=== PATIENT | female | born 1940 | race Caucasian/White ===

== ENCOUNTER → 2017-07-11 | Outpatient (CLI) | payer OTHER ==
[~2017-07-11] MED LIST: ALBU6.7H; ALBU6.7H INH; AMIT10TA PO; AMOX1TAB64 PO; ASPI-496 PO; ASPI-621 PO; BENA1TAB10 PO; BENA20TA61 PO; BUPR1TAB45 SL; CALC600T4 PO; CARV3.1212 PO; COENZYME Q10 PO; DOXY100T PO; FOLI-17 PO; FURO-93 PO; GABA300C10 PO; GABA800T2 PO; METO10TA2 PO; MORP30TA81 PO; NORT10CA PO; OXYC-307 PO; PANT40TA3 PO; POTA20PA PO; POTA20TA14 PO; PRED10TA PO; PRED20TA PO; PRED5TAB PO; PREG50CA PO; SERT100T PO; SERT50TA PO; TIOT18CA INH; VITAMIN C PO; VITAMIN D PO
== END | disposition home or self-care (01) ==
LOC: CFH 12:09
PROVIDERS: ATTEND Family Medicine
DX: Z12.31 Encounter for screening mammogram for malignant neoplasm of breast (principal)
CPT/HCPCS: 77067

== ENCOUNTER 2017-07-16 10:27 | Inpatient (IN) | payer OTHER ==
[~2017-07-16] VITALS: Ht 147.3 cm; Wt 46.1 kg
[~2017-07-16 10:27] MED LIST changes: -ASPI-496 PO; -BUPR1TAB45 SL; -GABA800T2 PO; -SERT100T PO
[2017-07-16] MEDS ORDERED: SODIUM CHLORIDE 0.9% 1,000 ML IV ONE (10:47)
[2017-07-16] MEDS ORDERED: SODIUM CHLORIDE FLUSH 10ML SYR IVF ONE (11:00)
[2017-07-16 11:01] LABS: BASOPHILS # (AUTO) 0.02 x10^3/uL (0-0.1); BASOPHILS % (AUTO) 0 % (0-1); EOSINOPHILS % (AUTO) 0 % (1-7); LYMPHOCYTES % (AUTO) 6 % (22-44); MD NO; MEAN CORPUSCULAR HEMOGLOBIN 29.8 pg (27.0-34.8); MEAN CORPUSCULAR HGB CONC 33.1 g/dL (32.4-35.8); MEAN CORPUSCULAR VOLUME 89.9 fL (80-100); MEAN PLATELET VOLUME 7.5 fL (7.4-10.4); MONOCYTES # (AUTO) 0.48 x10^3/uL (0.2-0.8); MONOCYTES % (AUTO) 4 % (2-9); NEUTROPHILS # (AUTO) 12.18 x10^3/uL (1.8-6.8); NEUTROPHILS % (AUTO) 90 % (42-75); PLATELET COUNT 221 x10^3/uL (130-400); RED BLOOD COUNT 4.15 x10^6/uL (3.82-5.3); RED CELL DISTRIBUTION WIDTH 14.6 % (9.6-15.2)
[2017-07-16] MEDS ORDERED: GABA800T2 PO (11:06)
[2017-07-16] MEDS ORDERED: BUPR1TAB45 SL (11:06)
[2017-07-16] MEDS ORDERED: ASPI-496 PO (11:06)
[2017-07-16] MEDS ORDERED: SERT100T PO (11:06)
[2017-07-16 11:13] LABS: ANION GAP 7 mmol/L (5-15); CHLORIDE 96 mmol/L (98-107); CREATININE 0.64 mg/dL (0.55-1.02)
[2017-07-16] MEDS ORDERED: ONDANSETRON 2MG/ML, 2ML ONE (12:53)
[2017-07-16] MEDS ORDERED: MORPHINE SULFATE 4 MG/ML, 1ML ONE (12:54)
[2017-07-16] MEDS ORDERED: MORPHINE SULFATE 4 MG/ML, 1ML IVPush ONE (13:00)
[2017-07-16] MEDS ORDERED: ONDANSETRON 2MG/ML, 2ML IVPush ONE (13:00)
[2017-07-16 13:45] VITALS: BP 160/80
[2017-07-16 14:07] VITALS: BP 160/80
[2017-07-16 14:22] VITALS: BP 157/76
[2017-07-16] MEDS ORDERED: ONDANSETRON ODT 4 MG PO PRN (16:00)
[2017-07-16] MEDS ORDERED: hydrALAzine 20 MG/ML, 1ML IVPush PRN (16:00)
[2017-07-16] MEDS ORDERED: ONDANSETRON 2MG/ML, 2ML IVPush PRN (16:00)
[2017-07-16] MEDS ORDERED: ACETAMINOPHEN 325 MG TABLET PO PRN (16:00)
[2017-07-16] MEDS ORDERED: BISACODYL 10 MG SUPP PR PRN (16:00)
[2017-07-16] MEDS: BUPRENORPHINE/NALOXONE 8-2MG SL SCH (16:00)
[2017-07-16] MEDS ORDERED: PROMETHAZINE 25 MG/ML, 1ML IM PRN (16:00)
[2017-07-16] MEDS ORDERED: POTASSIUM CHLORIDE 20 MEQ TAB.ER.PRT PO ONE (16:30)
[2017-07-16] MEDS: METOCLOPRAMIDE 10MG TABLET PO SCH ×2 (17:03→20:23)
[2017-07-16] MEDS: SODIUM CHLORIDE 0.9% 1,000 ML IV SCH (17:03)
[2017-07-16] MEDS: GABAPENTIN 400 MG CAPSULE PO SCH ×2 (17:07→20:23)
[2017-07-16] MEDS: HEPARIN 5,000 UNITS/ML, 1ML SQ SCH (17:08)
[2017-07-16 17:14] LABS: THYROID STIMULATING HORMONE 0.521 mIU/L (0.358-3.740)
[2017-07-16 17:38] LABS: HEMOGLOBIN A1C 4.7 % (4.2-6.3)
[2017-07-16 18:45] VITALS: BP 138/78
[2017-07-16] MEDS: NORTRIPTYLINE 10 MG CAPSULE PO SCH (20:23)
[2017-07-17] MEDS: BUPRENORPHINE/NALOXONE 8-2MG SL SCH ×5 (00:39→20:15)
[2017-07-17] MEDS: HEPARIN 5,000 UNITS/ML, 1ML SQ SCH ×3 (00:39→16:00)
[2017-07-17] MEDS: SODIUM CHLORIDE 0.9% 1,000 ML IV SCH (02:42)
[2017-07-17 03:01] VITALS: BP 141/82
[2017-07-17 05:24] LABS: ALBUMIN 3.2 g/dL (3.4-5.0); ANION GAP 3 mmol/L (5-15); CALCIUM 8.5 mg/dL (8.5-10.1); CHLORIDE 100 mmol/L (98-107)
[2017-07-17 05:29] LABS: ALANINE AMINOTRANSFERASE 17 U/L (12-78); ALKALINE PHOSPHATASE 41 U/L (45-117); BILIRUBIN,TOTAL 0.9 mg/dL (0.2-1.0); CHOL/HDL RATIO 2.5; CHOLESTEROL, TOTAL 180 mg/dL (140-239); CREATININE 0.46 mg/dL (0.55-1.02); HDL CHOL % 40 % (28-40); HDL CHOLESTEROL (DIRECT) 72 mg/dL (40-60); LDL CHOLESTEROL,CALCULATED 92 mg/dL (54-169); LDL/HDL RATIO 1.3 (0.5-3.0); TOTAL PROTEIN 6.7 g/dL (6.4-8.2); TRIGLYCERIDES 81 mg/dL (50-200); VLDL CHOLESTEROL 16 mg/dL (0-25)
[2017-07-17 05:35] LABS: BASOPHILS # (AUTO) 0.03 x10^3/uL (0-0.1); BASOPHILS % (AUTO) 0 % (0-1); EOSINOPHILS # (AUTO) 0.15 x10^3/uL (0-0.4); EOSINOPHILS % (AUTO) 2 % (1-7); LYMPHOCYTES # (AUTO) 1.53 x10^3/uL (1-3.4); LYMPHOCYTES % (AUTO) 18 % (22-44); MD NO; MEAN CORPUSCULAR HEMOGLOBIN 29.7 pg (27.0-34.8); MEAN CORPUSCULAR HGB CONC 32.9 g/dL (32.4-35.8); MEAN PLATELET VOLUME 7.6 fL (7.4-10.4); MONOCYTES # (AUTO) 0.98 x10^3/uL (0.2-0.8); MONOCYTES % (AUTO) 11 % (2-9); NEUTROPHILS # (AUTO) 5.96 x10^3/uL (1.8-6.8); NEUTROPHILS % (AUTO) 69 % (42-75); PLATELET COUNT 160 x10^3/uL (130-400); RED BLOOD COUNT 3.53 x10^6/uL (3.82-5.3); RED CELL DISTRIBUTION WIDTH 14.8 % (9.6-15.2)
[2017-07-17 08:01] VITALS: BP 123/71
[2017-07-17] MEDS: CALCIUM CARBONATE 500 MG TAB.CHEW PO SCH ×2 (09:00→10:09)
[2017-07-17] MEDS ORDERED: COENZYME Q10 PO SCH (09:00)
[2017-07-17] MEDS: CHOLECALCIFEROL 1,000 UNIT TABLET PO SCH ×2 (09:00→10:10)
[2017-07-17] MEDS: SERTRALINE 100MG TABLET PO SCH ×2 (09:00→10:09)
[2017-07-17] MEDS: FUROSEMIDE 20 MG TABLET PO SCH ×2 (09:00→10:09)
[2017-07-17] MEDS: POTASSIUM CHLORIDE 20 MEQ TAB.ER.PRT PO SCH ×2 (09:00→10:09)
[2017-07-17] MEDS: GABAPENTIN 400 MG CAPSULE PO SCH ×4 (09:00→22:24)
[2017-07-17] MEDS: SENNA/DOCUSATE TABLET PO SCH ×2 (09:00→10:10)
[2017-07-17] MEDS: METOCLOPRAMIDE 10MG TABLET PO SCH ×4 (09:00→22:24)
[2017-07-17] MEDS: FOLIC ACID 1 MG TABLET PO SCH ×2 (09:00→10:09)
[2017-07-17] MEDS: ASCORBIC ACID 500 MG TABLET PO SCH ×2 (09:00→10:09)
[2017-07-17] MEDS: ASPIRIN 81 MG TABLET EC PO SCH ×2 (09:00→10:10)
[2017-07-17] MEDS ORDERED: ERGOCALCIFEROL 50,000 UNIT CAPSULE PO SCH (10:00)
[2017-07-17 12:54] VITALS: BP 139/86
[2017-07-17 20:00] VITALS: BP 131/74
[2017-07-17] MEDS: NORTRIPTYLINE 10 MG CAPSULE PO SCH (22:24)
[2017-07-18] MEDS: HEPARIN 5,000 UNITS/ML, 1ML SQ SCH ×3 (00:40→17:00)
[2017-07-18 02:00] VITALS: BP 133/71
[2017-07-18 07:51] VITALS: BP 136/71
[2017-07-18] MEDS: POLYETHYLENE GLYCOL 17 GM PACKET PO PRN (08:08)
[2017-07-18] MEDS: FUROSEMIDE 20 MG TABLET PO SCH (08:09)
[2017-07-18] MEDS: ASCORBIC ACID 500 MG TABLET PO SCH (08:09)
[2017-07-18] MEDS: POTASSIUM CHLORIDE 20 MEQ TAB.ER.PRT PO SCH (08:09)
[2017-07-18] MEDS: CALCIUM CARBONATE 500 MG TAB.CHEW PO SCH (08:09)
[2017-07-18] MEDS: METOCLOPRAMIDE 10MG TABLET PO SCH ×3 (08:09→19:52)
[2017-07-18] MEDS: FOLIC ACID 1 MG TABLET PO SCH (08:09)
[2017-07-18] MEDS: SERTRALINE 100MG TABLET PO SCH (08:09)
[2017-07-18] MEDS: SENNA/DOCUSATE TABLET PO SCH (08:09)
[2017-07-18] MEDS: ASPIRIN 81 MG TABLET EC PO SCH (08:09)
[2017-07-18] MEDS: GABAPENTIN 400 MG CAPSULE PO SCH ×3 (08:09→19:52)
[2017-07-18] MEDS: CHOLECALCIFEROL 1,000 UNIT TABLET PO SCH (08:09)
[2017-07-18] MEDS: BUPRENORPHINE/NALOXONE 8-2MG SL SCH ×3 (09:00→19:52)
[2017-07-18] MEDS ORDERED: ERGOCALCIFEROL 50,000 UNIT CAPSULE PO SCH (11:00)
[2017-07-18 12:23] VITALS: BP 120/73
[2017-07-18 18:52] VITALS: BP 117/70
[2017-07-18] MEDS: NORTRIPTYLINE 10 MG CAPSULE PO SCH (19:52)
[2017-07-19] MEDS: HEPARIN 5,000 UNITS/ML, 1ML SQ SCH ×3 (00:17→16:23)
[2017-07-19 01:46] VITALS: BP 116/73
[2017-07-19 07:10] VITALS: BP 121/74
[2017-07-19] MEDS: FOLIC ACID 1 MG TABLET PO SCH (08:11)
[2017-07-19] MEDS: SENNA/DOCUSATE TABLET PO SCH (08:11)
[2017-07-19] MEDS: GABAPENTIN 400 MG CAPSULE PO SCH ×3 (08:11→21:28)
[2017-07-19] MEDS: ASPIRIN 81 MG TABLET EC PO SCH (08:11)
[2017-07-19] MEDS: CALCIUM CARBONATE 500 MG TAB.CHEW PO SCH (08:11)
[2017-07-19] MEDS: ASCORBIC ACID 500 MG TABLET PO SCH (08:11)
[2017-07-19] MEDS: POLYETHYLENE GLYCOL 17 GM PACKET PO PRN (08:11)
[2017-07-19] MEDS: BUPRENORPHINE/NALOXONE 8-2MG SL SCH ×3 (08:12→21:00)
[2017-07-19] MEDS: FUROSEMIDE 20 MG TABLET PO SCH (08:12)
[2017-07-19] MEDS: SERTRALINE 100MG TABLET PO SCH (08:19)
[2017-07-19] MEDS: METOCLOPRAMIDE 10MG TABLET PO SCH ×3 (08:19→21:00)
[2017-07-19] MEDS: POTASSIUM CHLORIDE 20 MEQ TAB.ER.PRT PO SCH (08:20)
[2017-07-19 13:33] VITALS: BP 116/74
[2017-07-19 18:53] VITALS: BP 135/97
[2017-07-19] MEDS: NORTRIPTYLINE 10 MG CAPSULE PO SCH (21:28)
[2017-07-20] MEDS: HEPARIN 5,000 UNITS/ML, 1ML SQ SCH ×2 (00:09→09:15)
[2017-07-20 02:01] VITALS: BP 123/73
[2017-07-20] MEDS: BUPRENORPHINE/NALOXONE 8-2MG SL SCH ×2 (07:37→07:38)
[2017-07-20 07:57] VITALS: BP 128/78
[2017-07-20] MEDS: SENNA/DOCUSATE TABLET PO SCH (09:00)
[2017-07-20] MEDS: METOCLOPRAMIDE 10MG TABLET PO SCH (09:00)
[2017-07-20] MEDS: ASPIRIN 81 MG TABLET EC PO SCH (09:14)
[2017-07-20] MEDS: SERTRALINE 100MG TABLET PO SCH (09:14)
[2017-07-20] MEDS: GABAPENTIN 400 MG CAPSULE PO SCH (09:14)
[2017-07-20] MEDS: POTASSIUM CHLORIDE 20 MEQ TAB.ER.PRT PO SCH (09:14)
[2017-07-20] MEDS: FOLIC ACID 1 MG TABLET PO SCH (09:15)
[2017-07-20] MEDS: ASCORBIC ACID 500 MG TABLET PO SCH (09:15)
[2017-07-20] MEDS: CALCIUM CARBONATE 500 MG TAB.CHEW PO SCH (09:15)
[2017-07-20] MEDS: FUROSEMIDE 20 MG TABLET PO SCH (09:15)
[2017-07-20] MEDS ORDERED: ERGO500017 PO (12:34)
[2017-07-20] MEDS ORDERED: SENN1TAB7 PO (12:34)
[2017-07-20] MEDS ORDERED: ENOX40SY4 SQ (12:34)
[2017-07-20] MEDS ORDERED: ACET325T14 PO (12:34)
[2017-07-20 14:30] VITALS: BP 130/79
== END 2017-07-20 16:05 | DRG 542 ==
LOC: ED 12:27 → EDIP 12:28 → ED 13:13 → 4NOR 13:27
PROVIDERS: ADMIT Hospitalist; ATTEND Hospitalist
DX: M80.061A Age-related osteoporosis with current pathological fracture, right lower leg, initial encounter for fracture (principal); J96.21 Acute and chronic respiratory failure with hypoxia; F11.20 Opioid dependence, uncomplicated; E87.6 Hypokalemia; I11.0 Hypertensive heart disease with heart failure; I25.10 Atherosclerotic heart disease of native coronary artery without angina pectoris; G89.29 Other chronic pain; F41.9 Anxiety disorder, unspecified; F32.9 Major depressive disorder, single episode, unspecified; M54.5 Low back pain; W01.0XXA Fall on same level from slipping, tripping and stumbling without subsequent striking against object, initial encounter; D64.9 Anemia, unspecified; I34.0 Nonrheumatic mitral (valve) insufficiency; J44.9 Chronic obstructive pulmonary disease, unspecified; I50.9 Heart failure, unspecified; M19.90 Unspecified osteoarthritis, unspecified site; Z87.891 Personal history of nicotine dependence; Z91.81 History of falling; Z90.710 Acquired absence of both cervix and uterus; Y93.89 Activity, other specified; Y92.59 Other trade areas as the place of occurrence of the external cause; Y99.8 Other external cause status; Z88.8 Allergy status to other drugs, medicaments and biological substances; S06.0X0A Concussion without loss of consciousness, initial encounter; M80.08XA Age-related osteoporosis with current pathological fracture, vertebra(e), initial encounter for fracture
CPT/HCPCS: 36415; 70450; 71045; 72110; 80048; 80053; 80061; 82040; 82306; 82607; 83036; 83735; 84439; 84443; 85025; 93005; 96374; 96375; J1644; J2405; J7030

== ENCOUNTER 2018-07-22 16:56 | Inpatient (IN) | payer MEDICARE, OTHER ==
[~2018-07-22] VITALS: Ht 154.9 cm; Wt 44.8 kg
[~2018-07-22 16:56] MED LIST changes: +ACET325T14 PO; +ASPI-496 PO; -ASPI-621 PO; +ASPI81TA45 PO; +BUPR1TAB45 SL; +ENOX40SY4 SQ; +ERGO500017 PO; +GABA800T5 PO; -POTA20PA PO; +POTA20PA31 PO; +SENN-177 PO; +SERT100T PO
[2018-07-22 18:16] LABS: BASOPHILS # (AUTO) 0.01 x10^3/uL (0-0.1); BASOPHILS % (AUTO) 0 % (0-1); EOSINOPHILS # (AUTO) 0.16 x10^3/uL (0-0.4); EOSINOPHILS % (AUTO) 3 % (1-7); LYMPHOCYTES # (AUTO) 1.27 x10^3/uL (1-3.4); LYMPHOCYTES % (AUTO) 20 % (22-44); MD NO; MEAN CORPUSCULAR HEMOGLOBIN 31.1 pg (27.0-34.8); MEAN CORPUSCULAR HGB CONC 31.8 g/dL (32.4-35.8); MEAN CORPUSCULAR VOLUME 97.6 fL (80-100); MEAN PLATELET VOLUME 7.5 fL (7.4-10.4); MONOCYTES # (AUTO) 0.49 x10^3/uL (0.2-0.8); MONOCYTES % (AUTO) 8 % (2-9); NEUTROPHILS # (AUTO) 4.36 x10^3/uL (1.8-6.8); NEUTROPHILS % (AUTO) 69 % (42-75); PLATELET COUNT 207 x10^3/uL (130-400); RED CELL DISTRIBUTION WIDTH 13.7 % (9.6-15.2)
[2018-07-22 18:26] LABS: ALANINE AMINOTRANSFERASE 20 U/L (12-78); ALBUMIN 3.9 g/dL (3.4-5.0); ANION GAP 3 mmol/L (5-15); CALCIUM 8.8 mg/dL (8.5-10.1); CHLORIDE 94 mmol/L (98-107); CREATININE 0.55 mg/dL (0.55-1.02)
[2018-07-22 18:28] LABS: ALKALINE PHOSPHATASE 42 U/L (45-117); BILIRUBIN,TOTAL 0.2 mg/dL (0.2-1.0); TOTAL PROTEIN 7.2 g/dL (6.4-8.2)
--- NOTE | 2018-07-22 19:02 | NUR ---
PT TO ROOM FROM LOBBY.
--- NOTE | 2018-07-22 19:12 | NUR ---
PT HERE FOR RUQ PAIN THAT SHE HAS HAD FOR A WHILE. PT SAYS IT HAS BEEN "FLARING UP" FOR 3 WEEKS APPROX. PT DENIES N/V/D. VSS CALL LIGHT IN REACH
--- NOTE | 2018-07-22 19:42 | NUR ---
PIV PLACED. VSS. PT TO CT.
[2018-07-22 19:56] LABS: TROPONIN I 0.018 ng/mL (0.000-0.045)
[2018-07-22] MEDS ORDERED: OMNIPAQUE 350 MG/ML, 100ML BOTTLE ONE (20:01)
--- NOTE | 2018-07-22 21:06 | NUR ---
PT TO BATHROOM FOR YUA. PT UNABLE TO PRODUCE SAMPLE. PT BACK IN BED. PT HAS NO NEEDS AT THIS TIME. CALL LIGHT IN REACH
[2018-07-22] MEDS ORDERED: MORPHINE SULFATE 4 MG/ML, 1ML IVPush PRN (21:30)
[2018-07-22] MEDS ORDERED: ONDANSETRON 2MG/ML, 2ML IVPush PRN ×2 (21:30→22:30)
--- NOTE | 2018-07-22 21:32 | NUR ---
PT TO BE ADMITTED. MED REC COMPLETE. SPOUSE AT BEDSIDE. VSS. PT HAS NO NEEDS AT THIS TIME. CALL LIGHT IN REACH
[2018-07-22] MEDS ORDERED: DOCUSATE 100 MG CAPSULE PO PRN (22:30)
[2018-07-22] MEDS ORDERED: hydrALAzine 20 MG/ML, 1ML IVPush PRN (22:30)
[2018-07-22] MEDS ORDERED: BUPRENORPHINE/NALOXONE 8-2MG SL SCH (22:30)
[2018-07-22] MEDS ORDERED: ALBUTEROL SULFATE 108 MCG INH PRN (22:30)
[2018-07-22] MEDS ORDERED: ONDANSETRON ODT 4 MG PO PRN (22:30)
[2018-07-22] MEDS ORDERED: POLYETHYLENE GLYCOL 17 GM PACKET PO PRN (22:30)
[2018-07-22] MEDS ORDERED: ACETAMINOPHEN 325 MG TABLET PO PRN (22:30)
[2018-07-22] MEDS ORDERED: morphine SULFATE 10 MG/ML, 1ML IVPush PRN (22:30)
[2018-07-22] MEDS ORDERED: ERGOCALCIFEROL 50,000 UNIT CAPSULE PO SCH (22:30)
[2018-07-22] MEDS ORDERED: BISACODYL 10 MG SUPP PR PRN (22:30)
[2018-07-22] MEDS: ALBUTEROL SULFATE 2.5 MG/3 ML NPPB SCH (22:30)
[2018-07-22] MEDS ORDERED: PROMETHAZINE 25 MG/ML, 1ML IM PRN (22:30)
[2018-07-22] MEDS ORDERED: OXYcodone IR 5MG TABLET PO PRN (22:30)
[2018-07-22 22:47] LABS: FREE T4 (FREE THYROXINE) 0.83 ng/dL (0.76-1.46); THYROID STIMULATING HORMONE 3.54 mIU/L (0.358-3.740)
[2018-07-22 22:56] LABS: ESTIMATED AVERAGE GLUCOSE 54 mg/dL (0-126); HEMOGLOBIN A1C < 3.5 % (4.2-6.3)
[2018-07-22] MEDS: HEPARIN 5,000 UNITS/ML, 1ML SQ SCH (22:57)
[2018-07-22] MEDS: NORTRIPTYLINE 10 MG CAPSULE PO SCH (22:57)
[2018-07-22] MEDS: GABAPENTIN 400 MG CAPSULE PO SCH (22:57)
[2018-07-22 23:00] VITALS: BP 114/59
[2018-07-23 02:20] VITALS: BP 118/62
[2018-07-23 05:42] LABS: BASOPHILS # (AUTO) 0.03 x10^3/uL (0-0.1); BASOPHILS % (AUTO) 1 % (0-1); EOSINOPHILS # (AUTO) 0.22 x10^3/uL (0-0.4); EOSINOPHILS % (AUTO) 4 % (1-7); LYMPHOCYTES # (AUTO) 1.96 x10^3/uL (1-3.4); LYMPHOCYTES % (AUTO) 39 % (22-44); MD NO; MEAN CORPUSCULAR HEMOGLOBIN 31.3 pg (27.0-34.8); MEAN CORPUSCULAR HGB CONC 32.1 g/dL (32.4-35.8); MEAN CORPUSCULAR VOLUME 97.4 fL (80-100); MEAN PLATELET VOLUME 7.9 fL (7.4-10.4); MONOCYTES # (AUTO) 0.51 x10^3/uL (0.2-0.8); MONOCYTES % (AUTO) 10 % (2-9); NEUTROPHILS # (AUTO) 2.28 x10^3/uL (1.8-6.8); NEUTROPHILS % (AUTO) 46 % (42-75); PLATELET COUNT 183 x10^3/uL (130-400); RED BLOOD COUNT 3.05 x10^6/uL (3.82-5.3); RED CELL DISTRIBUTION WIDTH 13.9 % (9.6-15.2)
[2018-07-23 05:52] LABS: CHLORIDE 96 mmol/L (98-107)
[2018-07-23 05:59] LABS: ALANINE AMINOTRANSFERASE 20 U/L (12-78); ALBUMIN 3.7 g/dL (3.4-5.0); ALKALINE PHOSPHATASE 40 U/L (45-117); ANION GAP 3 mmol/L (5-15); BILIRUBIN,TOTAL 0.4 mg/dL (0.2-1.0); CALCIUM 8.8 mg/dL (8.5-10.1); CHOL/HDL RATIO 2.4; CHOLESTEROL, TOTAL 190 mg/dL (140-239); CREATININE 0.51 mg/dL (0.55-1.02); HDL CHOL % 42 % (28-40); HDL CHOLESTEROL (DIRECT) 80 mg/dL (40-60); LDL CHOLESTEROL,CALCULATED 98 mg/dL (54-169); LDL/HDL RATIO 1.2 (0.5-3.0); TOTAL PROTEIN 6.8 g/dL (6.4-8.2); TRIGLYCERIDES 61 mg/dL (50-200); VLDL CHOLESTEROL 12 mg/dL (0-25)
[2018-07-23] MEDS: ALBUTEROL SULFATE 2.5 MG/3 ML NPPB SCH ×3 (07:38→20:22)
[2018-07-23 07:58] VITALS: BP 119/72
[2018-07-23] MEDS: ASPIRIN 81 MG TABLET EC PO SCH (08:09)
[2018-07-23] MEDS: HEPARIN 5,000 UNITS/ML, 1ML SQ SCH ×3 (08:09→21:15)
[2018-07-23] MEDS: CALCIUM CARBONATE 500 MG TAB.CHEW PO SCH (08:10)
[2018-07-23] MEDS: ASCORBIC ACID 500 MG TABLET PO SCH (08:10)
[2018-07-23] MEDS: POTASSIUM CHLORIDE 20 MEQ PACKET PO SCH (08:10)
[2018-07-23] MEDS: GABAPENTIN 400 MG CAPSULE PO SCH ×3 (08:10→21:15)
[2018-07-23] MEDS: BUPRENORPHINE HCL/NALOXONE 8-2MG FILM SL SCH ×3 (08:10→21:15)
[2018-07-23 08:35] VITALS: BP 128/71
[2018-07-23] MEDS ORDERED: COENZYME Q10 PO SCH (09:00)
[2018-07-23 13:00] VITALS: BP 106/61
[2018-07-23 13:39] VITALS: BP 106/61
[2018-07-23 14:25] LABS: MICROSCOPIC NOT IND
[2018-07-23 14:33] LABS: CULTURE INDICATED? NO
[2018-07-23 18:38] VITALS: BP 124/74
[2018-07-23] MEDS: NORTRIPTYLINE 10 MG CAPSULE PO SCH (21:15)
[2018-07-24 03:31] VITALS: BP 126/83
[2018-07-24] MEDS: HEPARIN 5,000 UNITS/ML, 1ML SQ SCH ×2 (05:55→13:50)
[2018-07-24 08:29] VITALS: BP 137/72
[2018-07-24] MEDS: BUPRENORPHINE HCL/NALOXONE 8-2MG FILM SL SCH (08:32)
[2018-07-24] MEDS: POTASSIUM CHLORIDE 20 MEQ PACKET PO SCH (08:32)
[2018-07-24] MEDS: GABAPENTIN 400 MG CAPSULE PO SCH (08:32)
[2018-07-24] MEDS: ASCORBIC ACID 500 MG TABLET PO SCH (08:32)
[2018-07-24] MEDS: CALCIUM CARBONATE 500 MG TAB.CHEW PO SCH (08:32)
[2018-07-24] MEDS: ASPIRIN 81 MG TABLET EC PO SCH (08:32)
[2018-07-24] MEDS: ALBUTEROL SULFATE 2.5 MG/3 ML NPPB SCH (08:59)
[2018-07-24 13:21] VITALS: BP 124/74
== END 2018-07-24 14:50 | disposition home health service (06) | DRG 391 ==
LOC: ED 20:49 → EDIP 21:30 → 4NOR 22:29
PROVIDERS: ADMIT Internal Medicine; ATTEND Internal Medicine
DX: K57.30 Diverticulosis of large intestine without perforation or abscess without bleeding (principal); K83.1 Obstruction of bile duct; J96.11 Chronic respiratory failure with hypoxia; E87.1 Hypo-osmolality and hyponatremia; K82.8 Other specified diseases of gallbladder; Z88.8 Allergy status to other drugs, medicaments and biological substances; D64.9 Anemia, unspecified; F41.9 Anxiety disorder, unspecified; G89.29 Other chronic pain; I10 Essential (primary) hypertension; I34.0 Nonrheumatic mitral (valve) insufficiency; J44.9 Chronic obstructive pulmonary disease, unspecified; K83.8 Other specified diseases of biliary tract; K86.89 Other specified diseases of pancreas; L98.429 Non-pressure chronic ulcer of back with unspecified severity; M81.0 Age-related osteoporosis without current pathological fracture; Z87.891 Personal history of nicotine dependence; Z90.710 Acquired absence of both cervix and uterus
CPT/HCPCS: 36415; 74177; 74181; 76700; 80053; 80061; 81003; 83036; 83690; 83735; 84100; 84439; 84443; 84484; 85025; 94640; 99285; G0378; J1644; J7613; Q9967

== ENCOUNTER 2018-08-28 08:34 | Day surgery (SDC) | payer MEDICARE ==
[~2018-08-28] VITALS: Ht 152.4 cm; Wt 41.2 kg
[2018-08-28 09:28] VITALS: BP 138/83
[2018-08-28] MEDS ORDERED: PROPOFOL 10 MG/ML, 20ML ONE ×2 (09:45→10:28)
[2018-08-28] MEDS ORDERED: FENTANYL PF 100 MCG/2ML IV PRN (10:00)
[2018-08-28] MEDS ORDERED: ALBUTEROL SULFATE 2.5 MG/3 ML NPPB PRN (10:00)
[2018-08-28] MEDS ORDERED: LACTATED RINGERS 1,000 ML IV SCH (10:02)
[2018-08-28] MEDS ORDERED: PHENYLEPHRINE 10 MG/ML ONE (10:10)
== END 2018-08-28 12:35 | disposition home or self-care (01) ==
LOC: OUT 08:34
PROVIDERS: ATTEND Internal Medicine Gastroenterology
DX: K29.50 Unspecified chronic gastritis without bleeding (principal); K44.9 Diaphragmatic hernia without obstruction or gangrene; J44.9 Chronic obstructive pulmonary disease, unspecified; I50.9 Heart failure, unspecified; Z79.82 Long term (current) use of aspirin; Z79.899 Other long term (current) drug therapy; Z99.81 Dependence on supplemental oxygen; Z88.8 Allergy status to other drugs, medicaments and biological substances
CPT/HCPCS: 43239; 43259; 88305; 93005; J2370; J2704; J7120

== ENCOUNTER 2019-04-13 15:55 | Observation (INO) | payer MEDICARE ==
[~2019-04-13] VITALS: Ht 157.5 cm; Wt 38.4 kg
[~2019-04-13 15:55] MED LIST changes: -ALBU6.7H; -ALBU6.7H INH; +ALBU6.7H8; +ALBU6.7H8 INH
[2019-04-13 17:05] LABS: BASOPHILS # (AUTO) 0.04 x10^3/uL (0-0.1); BASOPHILS % (AUTO) 1 % (0-1); EOSINOPHILS # (AUTO) 0.19 x10^3/uL (0-0.4); EOSINOPHILS % (AUTO) 3 % (1-7); LYMPHOCYTES # (AUTO) 0.89 x10^3/uL (1-3.4); LYMPHOCYTES % (AUTO) 13 % (22-44); MD NO; MEAN CORPUSCULAR HEMOGLOBIN 30.6 pg (27.0-34.8); MEAN CORPUSCULAR HGB CONC 32.7 g/dL (32.4-35.8); MEAN CORPUSCULAR VOLUME 93.6 fL (80-100); MEAN PLATELET VOLUME 7.8 fL (7.4-10.4); MONOCYTES # (AUTO) 0.59 x10^3/uL (0.2-0.8); MONOCYTES % (AUTO) 9 % (2-9); NEUTROPHILS # (AUTO) 5.08 x10^3/uL (1.8-6.8); NEUTROPHILS % (AUTO) 75 % (42-75); PLATELET COUNT 219 x10^3/uL (130-400); RED BLOOD COUNT 3.57 x10^6/uL (3.82-5.3); RED CELL DISTRIBUTION WIDTH 14.2 % (9.6-15.2)
[2019-04-13 17:17] LABS: ALANINE AMINOTRANSFERASE 20 U/L (12-78); ALBUMIN 3.6 g/dL (3.4-5.0); ANION GAP 3 mmol/L (5-15); CALCIUM 9.2 mg/dL (8.5-10.1); CHLORIDE 96 mmol/L (98-107); CREATININE 0.45 mg/dL (0.55-1.02)
[2019-04-13 17:21] LABS: ALKALINE PHOSPHATASE 50 U/L (45-117); BILIRUBIN,TOTAL 0.3 mg/dL (0.2-1.0); TOTAL PROTEIN 7.2 g/dL (6.4-8.2); TROPONIN I 0.051 ng/mL (0.000-0.045)
[2019-04-13] MEDS ORDERED: ASPIRIN 81 MG TABLET CHEW ONE (19:51)
--- NOTE | 2019-04-13 19:55 | NUR ---
PT. TO ROOM FROM [facility] APPROXIMATELY 15 MIN AGO. PT. HERE WITH FOR C/O INTERMITTENT CP X 3 DAYS. EKG WAS DONE IN TRIAGE. PT. WAS ON CARDIAC MONITORS, PULSE OX, AND B/P MONITORS WHEN THIS RN ENTERED ROOM. NSR NOTED ON MONITOR. PT. HAS A WOUND VAC IN PLACE FOR A PRESSURE ULCER TO RIGHT LOWER BACK.
[2019-04-13] MEDS ORDERED: SODIUM CHLORIDE FLUSH 10ML SYR IVF PRN (20:00)
[2019-04-13] MEDS ORDERED: ASPIRIN 81 MG TABLET CHEW PO ONE (20:00)
[2019-04-13] MEDS ORDERED: UNKNOWN ANTIBIOTIC PO (20:11)
[2019-04-13] MEDS ORDERED: LIDODERM 5% PATCH TD PRN (20:30)
[2019-04-13] MEDS ORDERED: GUAIFENESIN/DM 200-20MG, 10ML UDC PO PRN (20:30)
[2019-04-13] MEDS ORDERED: ONDANSETRON 2MG/ML, 2ML IVPush PRN (20:30)
[2019-04-13] MEDS ORDERED: ERGOCALCIFEROL 50,000 UNIT CAPSULE PO SCH (20:30)
[2019-04-13] MEDS ORDERED: ONDANSETRON ODT 4 MG PO PRN (20:30)
[2019-04-13] MEDS ORDERED: NITROGLYCERIN 0.4 MG BOTTLE (25 TABS) SL PRN ×2 (20:30)
[2019-04-13] MEDS ORDERED: NITROGLYCERIN 0.4 MG/SPRAY SL PRN (20:30)
[2019-04-13] MEDS ORDERED: ALBUTEROL SULFATE 108 MCG INH PRN (20:30)
[2019-04-13] MEDS ORDERED: hydrALAzine 20 MG/ML, 1ML IVPush PRN (20:30)
[2019-04-13 21:55] LABS: FREE T4 (FREE THYROXINE) 0.85 ng/dL (0.76-1.46); TROPONIN I 0.046 ng/mL (0.000-0.045)
[2019-04-13] MEDS ORDERED: ENOXAPARIN 40 MG/0.4 ML ONE (22:43)
[2019-04-13] MEDS ORDERED: FAMOTIDINE 20 MG TABLET ONE (22:43)
[2019-04-13] MEDS ORDERED: methylPREDNISolone SOD SUCC 125 MG/2 ML ONE (22:43)
[2019-04-13] MEDS ORDERED: GABAPENTIN 400 MG CAPSULE ONE (22:43)
--- NOTE | 2019-04-13 22:54 | NUR ---
MED REQ SENT TO PHARMACY.
[2019-04-13] MEDS ORDERED: METOCLOPRAMIDE 10MG TABLET ONE (23:22)
[2019-04-13] MEDS: TEMPLATE NON-FORMULARY MED. (Gabapentin** 800 MG) PO SCH (23:25)
[2019-04-13] MEDS: ENOXAPARIN 40 MG/0.4 ML SQ SCH (23:25)
[2019-04-13] MEDS: methylPREDNISolone SOD SUCC 125 MG/2 ML IVPush SCH (23:26)
[2019-04-13] MEDS: METOCLOPRAMIDE 10MG TABLET PO SCH (23:27)
[2019-04-13] MEDS: NORTRIPTYLINE 10 MG CAPSULE PO SCH (23:27)
[2019-04-13] MEDS: SODIUM CHLORIDE 0.9% 1,000 ML IV SCH (23:27)
[2019-04-13] MEDS: FAMOTIDINE 20 MG TABLET PO SCH (23:27)
[2019-04-13] MEDS ORDERED: ALBUTEROL SULFATE 2.5 MG/3 ML NPPB PRN (23:30)
--- NOTE | 2019-04-14 01:36 | NUR ---
BS REPORT TO BRITT NAVA.
[2019-04-14] MEDS ORDERED: methylPREDNISolone SOD SUCC 125 MG/2 ML ONE ×2 (02:12→09:04)
[2019-04-14] MEDS: methylPREDNISolone SOD SUCC 125 MG/2 ML IVPush SCH ×3 (02:18→14:55)
[2019-04-14 02:32] LABS: BASOPHILS # (AUTO) 0.03 x10^3/uL (0-0.1); BASOPHILS % (AUTO) 1 % (0-1); EOSINOPHILS # (AUTO) 0.06 x10^3/uL (0-0.4); EOSINOPHILS % (AUTO) 1 % (1-7); LYMPHOCYTES # (AUTO) 0.56 x10^3/uL (1-3.4); LYMPHOCYTES % (AUTO) 12 % (22-44); MD NO; MEAN CORPUSCULAR HEMOGLOBIN 31.2 pg (27.0-34.8); MEAN CORPUSCULAR HGB CONC 32.8 g/dL (32.4-35.8); MEAN CORPUSCULAR VOLUME 95.2 fL (80-100); MEAN PLATELET VOLUME 7.5 fL (7.4-10.4); MONOCYTES # (AUTO) 0.12 x10^3/uL (0.2-0.8); MONOCYTES % (AUTO) 3 % (2-9); NEUTROPHILS # (AUTO) 3.93 x10^3/uL (1.8-6.8); NEUTROPHILS % (AUTO) 84 % (42-75); PLATELET COUNT 177 x10^3/uL (130-400); RED BLOOD COUNT 3.31 x10^6/uL (3.82-5.3); RED CELL DISTRIBUTION WIDTH 14.3 % (9.6-15.2)
[2019-04-14 02:40] LABS: ANION GAP 2 mmol/L (5-15); CALCIUM 8.8 mg/dL (8.5-10.1); CHLORIDE 97 mmol/L (98-107); CHOLESTEROL, TOTAL 192 mg/dL (140-239); CREATININE 0.39 mg/dL (0.55-1.02); TRIGLYCERIDES 50 mg/dL (50-200); VLDL CHOLESTEROL 10 mg/dL (0-25)
[2019-04-14 02:42] LABS: CHOL/HDL RATIO 2.4; HDL CHOL % 41 % (28-40); HDL CHOLESTEROL (DIRECT) 79 mg/dL (40-60); LDL CHOLESTEROL,CALCULATED 103 mg/dL (54-169); LDL/HDL RATIO 1.3 (0.5-3.0)
[2019-04-14 02:44] LABS: TROPONIN I 0.052 ng/mL (0.000-0.045)
[2019-04-14] MEDS ORDERED: ASPIRIN 325 MG TABLET EC PO SCH (06:00)
[2019-04-14] MEDS ORDERED: ASPIRIN 325 MG TABLET ONE (06:27)
[2019-04-14] MEDS ORDERED: ACETAMINOPHEN 325 MG TABLET ONE (06:28)
[2019-04-14] MEDS: ACETAMINOPHEN 325 MG TABLET PO PRN ×2 (06:31→21:18)
--- NOTE | 2019-04-14 07:42 | NUR ---
HAZELH AT BED SIDE. PT IS CT NOW WILL CHECK VSS LATER AFTER CT PT IS AAOX4
--- NOTE | 2019-04-14 07:59 | NUR ---
[facility] NOTE: PT IS AAOX4 VSS STABLE PT JUST CAME BACK FROM CT
[2019-04-14] MEDS ORDERED: REGADENOSON 0.4 MG/5 ML SYRINGE ONE (08:24)
[2019-04-14] MEDS ORDERED: COENZYME Q10 PO SCH (09:00)
[2019-04-14] MEDS ORDERED: FAMOTIDINE 20 MG TABLET ONE (09:05)
[2019-04-14] MEDS ORDERED: GABAPENTIN 400 MG CAPSULE ONE (09:05)
[2019-04-14] MEDS ORDERED: ASPIRIN 81 MG TABLET EC ONE (09:05)
[2019-04-14] MEDS ORDERED: METOCLOPRAMIDE 10MG TABLET ONE (09:05)
[2019-04-14 09:10] VITALS: BP 118/62
[2019-04-14] MEDS: TEMPLATE NON-FORMULARY MED. (Gabapentin** 800 MG) PO SCH (09:11)
[2019-04-14] MEDS: SODIUM CHLORIDE 0.9% 1,000 ML IV SCH (09:11)
[2019-04-14] MEDS: ASPIRIN 81 MG TABLET EC PO SCH (09:11)
[2019-04-14] MEDS: FAMOTIDINE 20 MG TABLET PO SCH (09:12)
[2019-04-14] MEDS: METOCLOPRAMIDE 10MG TABLET PO SCH ×4 (09:12→21:11)
[2019-04-14] MEDS ORDERED: OMNIPAQUE 350 MG/ML, 100ML BOTTLE ONE (09:31)
[2019-04-14] MEDS: POTASSIUM CHLORIDE 20 MEQ PACKET PO SCH (09:32)
[2019-04-14] MEDS: CALCIUM CARBONATE 500 MG TABLET PO SCH (09:32)
[2019-04-14] MEDS: ASCORBIC ACID 500 MG TABLET PO SCH (09:32)
--- NOTE | 2019-04-14 11:45 | NUR ---
Report to BRITT Cotto. Pt to be transported to Tele via hospital bed, child monitor, and oxygen. at bedside.
[2019-04-14 13:11] VITALS: BP 145/81
[2019-04-14] MEDS: GABAPENTIN 400 MG CAPSULE PO SCH ×2 (14:55→21:11)
[2019-04-14] MEDS ORDERED: METOCLOPRAMIDE 10MG TABLET PO SCH (16:00)
[2019-04-14 18:23] VITALS: BP 152/96
[2019-04-14] MEDS: NORTRIPTYLINE 10 MG CAPSULE PO SCH (21:11)
[2019-04-14] MEDS: ENOXAPARIN 40 MG/0.4 ML SQ SCH (21:12)
[2019-04-15 01:38] VITALS: BP 143/84
[2019-04-15 06:35] LABS: BASOPHILS # (AUTO) 0.02 x10^3/uL (0-0.1); BASOPHILS % (AUTO) 0 % (0-1); EOSINOPHILS % (AUTO) 0 % (1-7); LYMPHOCYTES # (AUTO) 1.53 x10^3/uL (1-3.4); LYMPHOCYTES % (AUTO) 27 % (22-44); MD NO; MEAN CORPUSCULAR HEMOGLOBIN 31.1 pg (27.0-34.8); MEAN CORPUSCULAR HGB CONC 32.9 g/dL (32.4-35.8); MEAN CORPUSCULAR VOLUME 94.6 fL (80-100); MEAN PLATELET VOLUME 8.1 fL (7.4-10.4); MONOCYTES # (AUTO) 0.56 x10^3/uL (0.2-0.8); MONOCYTES % (AUTO) 10 % (2-9); NEUTROPHILS # (AUTO) 3.58 x10^3/uL (1.8-6.8); NEUTROPHILS % (AUTO) 63 % (42-75); PLATELET COUNT 200 x10^3/uL (130-400); RED BLOOD COUNT 3.24 x10^6/uL (3.82-5.3); RED CELL DISTRIBUTION WIDTH 14.3 % (9.6-15.2)
[2019-04-15 06:42] LABS: ANION GAP 3 mmol/L (5-15); CALCIUM 8.8 mg/dL (8.5-10.1); CHLORIDE 99 mmol/L (98-107)
[2019-04-15 06:43] LABS: CREATININE 0.41 mg/dL (0.55-1.02)
[2019-04-15 08:35] VITALS: BP 151/98
[2019-04-15] MEDS: ASPIRIN 81 MG TABLET EC PO SCH (08:47)
[2019-04-15] MEDS: GABAPENTIN 400 MG CAPSULE PO SCH ×2 (08:47→16:02)
[2019-04-15] MEDS: POTASSIUM CHLORIDE 20 MEQ PACKET PO SCH (08:47)
[2019-04-15] MEDS: CALCIUM CARBONATE 500 MG TABLET PO SCH (08:48)
[2019-04-15] MEDS: ASCORBIC ACID 500 MG TABLET PO SCH (08:48)
[2019-04-15] MEDS: METOCLOPRAMIDE 10MG TABLET PO SCH ×2 (08:48→16:03)
[2019-04-15] MEDS ORDERED: FAMOTIDINE 20 MG TABLET PO SCH (09:00)
[2019-04-15 15:05] VITALS: BP 144/85
[2019-04-15] MEDS: ACETAMINOPHEN 325 MG TABLET PO PRN (16:03)
[2019-04-15] MEDS ORDERED: ENOXAPARIN 30 MG/0.3 ML SQ SCH (18:00)
== END 2019-04-15 18:29 | disposition home health service (06) ==
LOC: ED 20:43 → INTOOBSV 22:22 → EDIP 22:22 → 5SO 04-14 12:15
PROVIDERS: ADMIT Hospitalist; ATTEND Family Medicine
DX: R07.89 Other chest pain (principal); J96.21 Acute and chronic respiratory failure with hypoxia; J98.11 Atelectasis; D64.9 Anemia, unspecified; F41.1 Generalized anxiety disorder; J43.9 Emphysema, unspecified; J90 Pleural effusion, not elsewhere classified; I21.9 Acute myocardial infarction, unspecified; K44.9 Diaphragmatic hernia without obstruction or gangrene; I10 Essential (primary) hypertension; L98.429 Non-pressure chronic ulcer of back with unspecified severity; M81.0 Age-related osteoporosis without current pathological fracture; Z87.891 Personal history of nicotine dependence; Z90.710 Acquired absence of both cervix and uterus; Z99.81 Dependence on supplemental oxygen
CPT/HCPCS: 36415; 71045; 71046; 71275; 78452; 80048; 80053; 80061; 83880; 84439; 84443; 84484; 85025; 93005; 93017; 93306; 96372; 96374; 96376; 97161; 97605; 99285; A9502; C9898; G0378; J1650; J2785; J2930; J7030; Q9967